=== PATIENT | female | born 1990 | race African-American/Black ===

== ENCOUNTER 2017-05-10 02:43 | Inpatient (IN) | payer BC ==
[2017-05-10] VITALS (7 sets, daily range): BP systolic 126–137; BP diastolic 65–79; PULSE 91–116; RESP 16–22; TEMP 98.4–100.8
[2017-05-10] MEDS ORDERED: LIDOCAINE HCL 1% 50 ML VIAL ONE (02:53)
[2017-05-10] MEDS ORDERED: OXYTOCIN 30 UNITS-500ML PREMIX 500 ML ONE (02:53)
--- NOTE | 2017-05-10 03:34 | PD ---
HPI Chief Complaint Contractions with heart rate decelerations per the patient's professor of social work Date Seen: May 10, 2017 Time Seen: 02:55 Travel History International Travel<30 Days: No Contact w/Intl Traveler<30Days: No Known Affected Area: No History of Present Illness HPI 26-year-old with an EDC of May 03, 2017, 41 weeks gestation was laboring at home with a professor of social work in [facility] and the professor of social work is concerned about late heart rate decelerations. The patient declined to stop at [facility] or floor the [facility] and they drove here for assessment. Patient has known positive group B strep and she has refused antibiotics in labor. She is allergic to penicillin. Patient had rupture membranes at 1720 7 PM yesterday which was clear and the labor nurse on arrival here felt the patient had a large for bag. Patient was pushing at home for approximately 20 minutes before they decided to transfer her here via personal vehicle. Para: 0 : 1 History Past Medical History Medical History: Denies Significant Hx Past Surgical History Narrative Surgical Lipoma removal Family History Family History: Negative Social History Alcohol Use: No Tobacco Use: No Substance Abuse: No Allergies-Medications (Allergen,Severity, Reaction): Uncoded Allergies: penicillin unknown but patient says she almost (Allergy, Unknown, ) Review of Systems Except as stated in HPI: all other systems reviewed are Neg Physical Exam Narrative GENERAL: Well-nourished, well-developed patient. SKIN: Warm and dry. HEAD: Normocephalic and atraumatic. EYES: No scleral icterus. No injection or drainage. ENT: No nasal drainage noted. Mucous membranes pink. Airway patent. NECK: Supple, trachea midline. No JVD. CARDIOVASCULAR: Regular rate and rhythm without murmurs, gallops, or rubs. RESPIRATORY: Breath sounds equal bilaterally. No accessory muscle use. BREASTS: Bilateral exam showed no masses , no retractions, no nipple discharge. ABDOMEN/GI: Abdomen soft, non-tender, bowel sounds present, no rebound, no guarding Gravid to [-39] weeks size Fundal Height: [-] GENITOURINARY: External Genitalia: intact and normal in appearance BUS glands: [-Normal] Cervix: [-] Dilatation: [Complete-] Effacement: [-100%] Station: [+3-] large Is noted, large for values noted at the introitus Presentation: [-Vertex] Membranes: [ruptured] Uterine Contractions: [-Every 8] FHT's: Difficult to assess due to patient movement, patient is very verbal is moving around quite a bit Category: [2-] Baseline: [120-] Reactive: [-Moderate] Variability: [-Moderate] Decels: [-Variable decelerations to 80s for at least 2 minutes at a time, slow return to baseline] EXTREMITIES: No cyanosis or edema. BACK: Nontender without obvious deformity. No CVA tenderness. NEUROLOGICAL: Awake and alert. Motor and sensory grossly within normal limits. Five out of 5 muscle strength in all muscle groups. Normal speech. Data Data Vital Signs Reviewed: Yes Orders Lidocaine 1% Inj (50 Ml) (Xylocaine 1% I (05/10/17 02:53) Oxytocin 30 Units-500ml Premix (Pitocin (05/10/17 02:53) Complete Blood Count With Diff (05/10/17 03:09) Abo/Rh Blood Type (05/10/17 03:09) Hold Clot (05/10/17 02:45) MDM Medical Record Reviewed: Yes Plan 26-year-old who is been attempting to labor at home, positive group B strep has refused antibiotic medication for herself Patient in second stage labor with caput at +3, variable decelerations to 80 x 120sec. Discussed with patient need for delivery assistance with vaccuum. Diagnosis Diagnosis: Primary Impression: 41 weeks gestation of Additional Impressions: Group beta Strep positive Variable heart rate decelerations, delivered Connie Covington MD May 10, 2017 03:34
[2017-05-10 03:37] LABS: AUTOMATED NEUTROPHIL # 15.4 TH/MM3 (1.8-7.7); BASOPHIL % 0.1 % (0.0-2.0); HEMATOCRIT 37.6 % (35.0-46.0); LYMPH % 6.4 % (9.0-44.0); LYMPHOCYTE # 1.1 TH/MM3 (1.0-4.8); MEAN CELL VOLUME 73.9 FL (80.0-100.0); MEAN CORPUSCULAR HEMOGLOBIN 23.6 PG (27.0-34.0); MEAN CORPUSCULAR HGB CONC 31.9 % (32.0-36.0); MONO % 5.7 % (0.0-8.0); NEUT % 87.8 % (16.0-70.0); PLATELET COUNT 261 TH/MM3 (150-450); RED BLOOD COUNT 5.08 MIL/MM3 (4.00-5.30); RED CELL DISTRIBUTION WIDTH 27.6 % (11.6-17.2); WHITE BLOOD COUNT 17.5 TH/MM3 (4.0-11.0)
[2017-05-10] MEDS ORDERED: LACTATED RINGER'S 1000 ML INJ 1,000 ML IV PRN (03:37)
--- NOTE | 2017-05-10 03:37 | PD.OB.DELI ---
Delivery Date: May 10, 2017 Anesthesia: Lidocaine local to perineum Episiotomy: Right mediolateral Vaginal Delivery: Vacuum (at 5 50 mmHg times a single pull) Presentation: Occiput anterior, Other (moderate size caput) Nuchal Cord: None Delayed cord clamping (45 sec): Yes Infant: Female One Minute : 9 Five Minute : 9 Weight: 3295 g Placenta: Spontaneous delivery, Intact Laceration: Episiotomy Repair: Chromic running Additional Information Patient desires to ingest her placenta. She understands that the Centers for Disease Control have just issued a warning for mothers no longer to ingest the placenta even with encapsulation particularly with a positive group B strep colonization due to the possibilities of passing along this organism. Breast- feeding to the . This information was conveyed both to the mother and to the family. Connie Covington MD May 10, 2017 03:37
[2017-05-10] MEDS ORDERED: MINERAL OIL 10 ML VIAL TOPICAL PRN (03:45)
[2017-05-10] MEDS ORDERED: OXYTOCIN 30 UNITS-500ML PREMIX 500 ML IV ONE (03:45)
[2017-05-10] MEDS ORDERED: LIDOCAINE HCL 1% 50 ML VIAL I-DERMAL PRN (03:45)
[2017-05-10] MEDS ORDERED: CITRIC ACID-SODIUM CITRATE LIQ 30 ML UDC PO SCH (03:45)
[2017-05-10] MEDS ORDERED: LIDOCAINE HCL 1% 50 ML VIAL INFIL PRN (03:45)
[2017-05-10] MEDS ORDERED: SODIUM CHLORID 0.9% 500 ML INJ 500 ML IV PRN (03:45)
[2017-05-10 03:46] LABS: HEMO FLAGS AUTO DIFF
--- NOTE | 2017-05-10 03:46 | HHI.HP ---
History & Physical H&P HPI Chief Complaint Contractions with heart rate decelerations per the patient's undercollar baster Date Seen: May 10, 2017 Time Seen: 02:55 Travel History International Travel<30 Days: No Contact w/Intl Traveler<30Days: No Known Affected Area: No History of Present Illness HPI 26-year-old with an EDC of May 03, 2017, 41 weeks gestation was laboring at home with a undercollar baster in [facility] and the undercollar baster is concerned about late heart rate decelerations. The patient declined to stop at [facility] or floor [facility] and they drove here for assessment. Patient has known positive group B strep and she has refused antibiotics in labor. She is allergic to penicillin. Patient had rupture membranes at 1720 7 PM yesterday which was clear and the labor nurse on arrival here felt the patient had a large for bag. Patient was pushing at home for approximately 20 minutes before they decided to transfer her here via personal vehicle. Para: 0 : 1 History Past Medical History Medical History: Denies Significant Hx Past Surgical History Narrative Surgical Lipoma removal Family History Family History: Negative Social History Alcohol Use: No Tobacco Use: No Substance Abuse: No Allergies-Medications (Allergen,Severity, Reaction): Uncoded Allergies: penicillin unknown but patient says she almost (Allergy, Unknown, ) Review of Systems Except as stated in HPI: all other systems reviewed are Neg Physical Exam Narrative GENERAL: Well-nourished, well-developed patient. SKIN: Warm and dry. HEAD: Normocephalic and atraumatic. EYES: No scleral icterus. No injection or drainage. ENT: No nasal drainage noted. Mucous membranes pink. Airway patent. NECK: Supple, trachea midline. No JVD. CARDIOVASCULAR: Regular rate and rhythm without murmurs, gallops, or rubs. RESPIRATORY: Breath sounds equal bilaterally. No accessory muscle use. BREASTS: Bilateral exam showed no masses , no retractions, no nipple discharge. ABDOMEN/GI: Abdomen soft, non-tender, bowel sounds present, no rebound, no guarding Gravid to [-39] weeks size Fundal Height: [-] GENITOURINARY: External Genitalia: intact and normal in appearance BUS glands: [-Normal] Cervix: [-] Dilatation: [Complete-] Effacement: [-100%] Station: [+3-] large Is noted, large for values noted at the introitus Presentation: [-Vertex] Membranes: [ruptured] Uterine Contractions: [-Every 8] FHT's: Difficult to assess due to patient movement, patient is very verbal is moving around quite a bit Category: [2-] Baseline: [120-] Reactive: [-Moderate] Variability: [-Moderate] Decels: [-Variable decelerations to 80s for at least 2 minutes at a time, slow return to baseline] EXTREMITIES: No cyanosis or edema. BACK: Nontender without obvious deformity. No CVA tenderness. NEUROLOGICAL: Awake and alert. Motor and sensory grossly within normal limits. Five out of 5 muscle strength in all muscle groups. Normal speech. Data Data Vital Signs Reviewed: Yes Orders Lidocaine 1% Inj (50 Ml) (Xylocaine 1% I (05/10/17 02:53) Oxytocin 30 Units-500ml Premix (Pitocin (05/10/17 02:53) Complete Blood Count With Diff (05/10/17 03:09) Abo/Rh Blood Type (05/10/17 03:09) Hold Clot (05/10/17 02:45) MDM Medical Record Reviewed: Yes Plan 26-year-old who is been attempting to labor at home, positive group B strep has refused antibiotic medication for herself Patient in second stage labor with caput at +3, variable decelerations to 80 x 120sec. Discussed with patient need for delivery assistance with vaccuum. Diagnosis Diagnosis: Primary Impression: 41 weeks gestation of Additional Impressions: Group beta Strep positive Variable heart rate decelerations, delivered Connie Covington MD May 10, 2017 03:46
[2017-05-10] MEDS: ACETAMINOPHEN 325 MG TAB PO PRN ×2 (03:55→08:55)
[2017-05-10] MEDS ORDERED: SODIUM CHLOR 0.9% 1000 ML INJ 1,000 ML IV PRN (03:57)
[2017-05-10] MEDS ORDERED: ONDANSETRON ODT 4 MG TAB PO PRN (04:00)
[2017-05-10] MEDS ORDERED: ZOLPIDEM TARTRATE 5 MG TAB PO PRN (04:00)
[2017-05-10] MEDS ORDERED: ALUMINUM/MAGNESIUM/SIMETH 30 ML CUP PO PRN (04:00)
[2017-05-10] MEDS ORDERED: oxyCODONE/ACETAMINOPHEN 5 MG/325 MG TAB PO PRN ×2 (04:00)
[2017-05-10] MEDS ORDERED: LACTATED RINGER'S 1000 ML INJ 1,000 ML IV SCH (04:00)
[2017-05-10] MEDS ORDERED: DOCUSATE SODIUM 50 MG/SENNA 8.6 MG TAB PO PRN (04:00)
[2017-05-10 04:19] LABS: PLATELET ESTIMATE SMEAR NORMAL (NORMAL); PLATELET MORPHOLOGY NORMAL (NORMAL); SCAN/DIFF AUTO DIFF CONFIRMED
[2017-05-10 04:20] LABS: ACANTHOCYTES OCC (NORMAL)
[2017-05-10 10:30] LABS: RAPID PLASMA REAGIN SCREEN NON-REACTIVE (NON-REACTVE)
--- NOTE | 2017-05-10 11:39 | HHI.OB ---
Subjective Post Day: 0 Remarks 26 year old female s/p at 40 wks gestation, PPD 0. Temperature 100.8 today AM, otherwise vitals WNL and stable. Patient reports she is feeling well. Bleeding is decreasing and pain is well-controlled. She is breast feeding and bonding well with baby. Ambulating without difficulties. She is tolerating a diet without nausea or vomiting. She has not had a bowel movement. She has passed gas. Denies chest pain, dysuria, shortness of breath, or calf pain. Objective Vitals/I&O Vital Signs Date Time Temp Pulse Resp B/P Pulse Ox O2 Delivery O2 Flow Rate FiO2 05/10/17 10:08 98.9 05/10/17 08:50 100.8 104 22 05/10/17 08:50 126/68 05/10/17 05:50 99.3 05/10/17 05:50 91 18 137/74 Objective Remarks GENERAL: Well-nourished, well-developed patient. CARDIOVASCULAR: Regular rate and rhythm without murmurs, gallops, or rubs. RESPIRATORY: Breath sounds equal bilaterally. No accessory muscle use. ABDOMEN/GI: Abdomen soft, non-tender. Fundus: Firm, non-tender at umbilicus. GENITOURINARY: Light to moderate bleeding. EXTREMITIES: No cyanosis or edema, non-tender, without signs of DVT. Medications and IVs Current Medications Medications (Trade) Dose Ordered Sig/Janette Route Start Time Stop Time Status Last Admin Lactated Ringer's 1,000 ml @ 125 mls/hr Q8H IV 05/10/17 04:00 05/10/17 03:47 Lactated Ringer's 1,000 ml @ 3,000 mls/hr Q20M PRN IV 05/10/17 03:37 Sodium Chloride 500 ml @ 1,000 mls/hr ONCE PRN IV 05/10/17 03:45 05/12/17 03:44 (NS 1000 ml Inj) 1,000 ml @ 100 mls/hr Q10H PRN IV 05/10/17 03:57 (fentaNYL INJ) 50 mcg Q1H PRN IV PUSH 05/10/17 03:45 (fentaNYL INJ) 100 mcg Q1H PRN IV PUSH 05/10/17 03:45 (Muri-Lube Oil) 10 ml UNSCH PRN TOPICAL 05/10/17 03:45 (Tylenol) 650 mg Q4H PRN PO 05/10/17 04:00 05/10/17 08:55 (Motrin) 600 mg Q6H PRN PO 05/10/17 04:00 (Percocet 5-325 Mg) 1 tab Q4H PRN PO 05/10/17 04:00 (Percocet 5-325 Mg) 2 tab Q4H PRN PO 05/10/17 04:00 (Americaine 20% Top Spr) 1 spray Q4H PRN TOPICAL 05/10/17 04:00 (Tucks Pads) 1 applic QID PRN TOPICAL 05/10/17 04:00 (Annelise-Colace) 2 tab Q12H PRN PO 05/10/17 04:00 (Ambien) 5 mg HS PRN PO 05/10/17 04:00 (M-M-R Ii Inj) 0.5 ml ONCE ONCE SQ 05/10/17 16:00 05/10/17 16:01 (Boostrix Inj) 0.5 ml ONCE ONCE IM 05/10/17 16:00 05/10/17 16:01 (Mag-Al Plus Susp Liq) 15 ml Q8H PRN PO 05/10/17 04:00 (Zofran Odt) 4 mg Q6H PRN PO 05/10/17 04:00 Assessment/Plan Assessment and Plan 26 yo female s/p with vacuum assistance PPD 0. - Probable prolonged rupture of membranes: temperature 100.8, high risk for endometritis due to GBS positive status and refusal of antibiotics but clinically not suggestive at this time; will continue to monitor - Continue routine care - Motrin PRN pain - Encourage OOB - Pelvic rest x 6 wks. - Contraception: TBD - Anticipate D/C 05/12 Jose Elias Izquierdo MD R1 May 10, 2017 11:39
[2017-05-10] MEDS: WITCH HAZEL 50%/GLYCERIN 12.5% 40 PAD JAR TOPICAL PRN (11:42)
[2017-05-10] MEDS: BENZOCAINE 20% TOPICAL SPRAY 60 ML CAN TOPICAL PRN (11:42)
[2017-05-10] MEDS: IBUPROFEN 600 MG TAB PO PRN ×2 (14:28→23:23)
[2017-05-10] MEDS ORDERED: DIPHTH/TETANUS/ACEL PERTUSSIS (BOOSTER) 0.5 ML VIAL/PFS IM ONE (16:00)
[2017-05-10] MEDS ORDERED: MEASLES, MUMPS, RUBELLA VACCINE 0.5 ML VIAL SQ ONE (16:00)
[2017-05-10 22:10] LABS: BLOOD, URINE MOD (NEG); COMMENT (UR) CULT NOT INDICATED; CULTURE IF INDICATED CULT NOT INDICATED; GLUCOSE,URINE NEG (NEG); KETONE, URINE NEG (NEG); NITRITE,URINE NEG (NEG); PH, URINE 6.5 (5.0-8.5); URINE COLOR YELLOW (YELLW/STRAW)
[2017-05-11 08:00] VITALS: BP 114/73; PULSE 96; RESP 20; TEMP 98.9
--- NOTE | 2017-05-11 10:57 | HHI.OB ---
Subjective Post Day: 1 Remarks 26 year old female s/p at 40 wks gestation, PPD 1. AFVSS. Patient reports she is feeling well. Bleeding is decreasing and pain is well- controlled. She is breast feeding and bonding well with baby. Ambulating without difficulties. She is tolerating a diet without nausea or vomiting. She has not had a bowel movement. She has passed gas. Denies chest pain, dysuria, shortness of breath, or calf pain. Objective Vitals/I&O Vital Signs Date Time Temp Pulse Resp B/P Pulse Ox O2 Delivery O2 Flow Rate FiO2 05/11/17 08:00 98.9 96 20 114/73 05/10/17 20:20 98.6 106 16 129/65 05/10/17 19:45 98.4 05/10/17 15:00 98.9 05/10/17 14:00 100.1 116 20 131/79 Objective Remarks GENERAL: Well-nourished, well-developed patient. CARDIOVASCULAR: Regular rate and rhythm without murmurs, gallops, or rubs. RESPIRATORY: Breath sounds equal bilaterally. No accessory muscle use. ABDOMEN/GI: Abdomen soft, non-tender. Fundus: Firm, non-tender at umbilicus. GENITOURINARY: Light to moderate bleeding. EXTREMITIES: No cyanosis or edema, non-tender, without signs of DVT. Medications and IVs Current Medications Medications (Trade) Dose Ordered Sig/Janette Route Start Time Stop Time Status Last Admin Lactated Ringer's 1,000 ml @ 125 mls/hr Q8H IV 05/10/17 04:00 05/10/17 03:47 Lactated Ringer's 1,000 ml @ 3,000 mls/hr Q20M PRN IV 05/10/17 03:37 Sodium Chloride 500 ml @ 1,000 mls/hr ONCE PRN IV 05/10/17 03:45 05/12/17 03:44 (NS 1000 ml Inj) 1,000 ml @ 100 mls/hr Q10H PRN IV 05/10/17 03:57 (fentaNYL INJ) 50 mcg Q1H PRN IV PUSH 05/10/17 03:45 (fentaNYL INJ) 100 mcg Q1H PRN IV PUSH 05/10/17 03:45 (Muri-Lube Oil) 10 ml UNSCH PRN TOPICAL 05/10/17 03:45 (Tylenol) 650 mg Q4H PRN PO 05/10/17 04:00 05/10/17 08:55 (Motrin) 600 mg Q6H PRN PO 05/10/17 04:00 05/10/17 23:23 (Percocet 5-325 Mg) 1 tab Q4H PRN PO 05/10/17 04:00 (Percocet 5-325 Mg) 2 tab Q4H PRN PO 05/10/17 04:00 (Americaine 20% Top Spr) 1 spray Q4H PRN TOPICAL 05/10/17 04:00 05/10/17 11:42 (Tucks Pads) 1 applic QID PRN TOPICAL 05/10/17 04:00 05/10/17 11:42 (Annelise-Colace) 2 tab Q12H PRN PO 05/10/17 04:00 (Ambien) 5 mg HS PRN PO 05/10/17 04:00 (Mag-Al Plus Susp Liq) 15 ml Q8H PRN PO 05/10/17 04:00 (Zofran Odt) 4 mg Q6H PRN PO 05/10/17 04:00 Assessment/Plan Assessment and Plan 26 yo female s/p with vacuum assistance PPD 1. - Probable prolonged rupture of membranes: Afebrile last 24 hours - Continue routine care - Motrin PRN pain - Encourage OOB - Pelvic rest x 6 wks. - Contraception: TBD - Anticipate D/C 05/12 Jose Elias Izquierdo MD R1 May 11, 2017 10:57
[2017-05-11] MEDS: IBUPROFEN 600 MG TAB PO PRN ×2 (13:21→20:40)
[2017-05-11 20:30] VITALS: BP 120/65; PULSE 97; RESP 18; TEMP 98.3
--- NOTE | 2017-05-12 06:38 | HHI.DCPOC ---
Discharge Care Plan Diagnosis: (1) Prolonged rupture of membranes (2) Normal vaginal delivery Report Symptoms to Your Doctor -Temperature above 100.5 degrees -Redness, of incision or excessive or foul smelling drainage -Unusual pain or calf pain -Increased vaginal bleeding -Painful or difficulty urinating -Feelings of extreme sadness or anxiety after 2 weeks Goals to Promote Your Health * To prevent worsening of your condition and complications * To maintain your health at the optimal level Directions to Meet Your Goals Take your medications as prescribed Follow your dietary instruction Follow activity as directed Ensure plenty of rest for recovery Drink fluids for hydration Keep your appointments as scheduled Take your immunizations and boosters as scheduled If your symptoms worsen call your PCP, if no PCP go to Urgent Care Center or Emergency Room Smoking is Dangerous to Your Health. Avoid second hand smoke Call the 24-hour crisis hotline for domestic abuse at Jose Elias Izquierdo MD R1 May 12, 2017 06:38
[2017-05-12] MEDS ORDERED: IBUP-232 PO (06:39)
[2017-05-12] MEDS: IBUPROFEN 600 MG TAB PO PRN ×2 (07:56→14:47)
[2017-05-12 08:05] VITALS: BP 123/78; PULSE 94; RESP 18; TEMP 98.8
[2017-05-12] MEDS: BENZOCAINE 20% TOPICAL SPRAY 60 ML CAN TOPICAL PRN (08:06)
[2017-05-12] MEDS: WITCH HAZEL 50%/GLYCERIN 12.5% 40 PAD JAR TOPICAL PRN (08:06)
--- NOTE | 2017-05-12 11:03 | HHI.OB ---
Subjective Post Day: 2 Remarks 26 year old female s/p NVD at 37 wks gestation, PPD 2. AFVSS. Patient reports she is feeling well. Bleeding is decreasing and pain is well- controlled. She is breast feeding and bonding well with baby. Ambulating without difficulties. She is tolerating a diet without nausea or vomiting. She has had a bowel movement. She has passed gas. Denies chest pain, dysuria, shortness of breath, or calf pain. Objective Vitals/I&O Vital Signs Date Time Temp Pulse Resp B/P Pulse Ox O2 Delivery O2 Flow Rate FiO2 05/12/17 08:05 98.8 05/12/17 08:05 94 18 123/78 05/11/17 20:30 98.3 97 18 120/65 Objective Remarks GENERAL: Well-nourished, well-developed patient. CARDIOVASCULAR: Regular rate and rhythm without murmurs, gallops, or rubs. RESPIRATORY: Breath sounds equal bilaterally. No accessory muscle use. ABDOMEN/GI: Abdomen soft, non-tender. Fundus: Firm, non-tender at umbilicus. GENITOURINARY: Light to moderate bleeding. EXTREMITIES: No cyanosis or edema, non-tender, without signs of DVT. Medications and IVs Current Medications Medications (Trade) Dose Ordered Sig/Janette Route Start Time Stop Time Status Last Admin Lactated Ringer's 1,000 ml @ 125 mls/hr Q8H IV 05/10/17 04:00 05/10/17 03:47 Lactated Ringer's 1,000 ml @ 3,000 mls/hr Q20M PRN IV 05/10/17 03:37 (NS 1000 ml Inj) 1,000 ml @ 100 mls/hr Q10H PRN IV 05/10/17 03:57 (fentaNYL INJ) 50 mcg Q1H PRN IV PUSH 05/10/17 03:45 (fentaNYL INJ) 100 mcg Q1H PRN IV PUSH 05/10/17 03:45 (Muri-Lube Oil) 10 ml UNSCH PRN TOPICAL 05/10/17 03:45 (Tylenol) 650 mg Q4H PRN PO 05/10/17 04:00 05/10/17 08:55 (Motrin) 600 mg Q6H PRN PO 05/10/17 04:00 05/12/17 07:56 (Percocet 5-325 Mg) 1 tab Q4H PRN PO 05/10/17 04:00 (Percocet 5-325 Mg) 2 tab Q4H PRN PO 05/10/17 04:00 (Americaine 20% Top Spr) 1 spray Q4H PRN TOPICAL 05/10/17 04:00 05/12/17 08:06 (Tucks Pads) 1 applic QID PRN TOPICAL 05/10/17 04:00 05/12/17 08:06 (Annelise-Colace) 2 tab Q12H PRN PO 05/10/17 04:00 (Ambien) 5 mg HS PRN PO 05/10/17 04:00 (Mag-Al Plus Susp Liq) 15 ml Q8H PRN PO 05/10/17 04:00 (Zofran Odt) 4 mg Q6H PRN PO 05/10/17 04:00 Assessment/Plan Assessment and Plan 26 yo female s/p with vacuum assistance PPD 2. - Probable prolonged rupture of membranes: Afebrile last 24 hours - Continue routine care - Motrin PRN pain - Encourage OOB - Pelvic rest x 6 wks. - Contraception: TBD - Discharge home today Jose Elias Izquierdo MD R1 May 12, 2017 11:03
[2017-05-12] MEDS ORDERED: medroxyPROGESTERone ACETATE SUSP 150 MG/ML SYRINGE IM ONE (13:30)
[2017-05-12] MEDS: ACETAMINOPHEN 325 MG TAB PO PRN (14:47)
== END 2017-05-12 17:55 | disposition home or self-care (01) | DRG 775 ==
LOC: H2EA 02:43 → H1EA 05:54
PROVIDERS: ADMIT Obstetrics & Gynecology Obstetrics; ATTEND Obstetrics & Gynecology Obstetrics
PROC: 10D07Z6 Extraction of Products of Conception, Vacuum, Via Natural or Artificial Opening (ICD-10-PCS; principal; 2017-05-10)
PROC: 0W8NXZZ Division of Female Perineum, External Approach (ICD-10-PCS; 2017-05-10)
DX: O76 Abnormality in fetal heart rate and rhythm complicating labor and delivery (principal); O99.824 Streptococcus B carrier state complicating childbirth; Z37.0 Single live birth; Z88.0 Allergy status to penicillin; Z3A.41 41 weeks gestation of pregnancy; Z53.29 Procedure and treatment not carried out because of patient's decision for other reasons
CPT/HCPCS: 81001; 85025; 86592; 86900; 86901; J1050; J2590; J7120